=== PATIENT | female | born 1960 | race American Indian/Alaskan Native ===

== ENCOUNTER 2018-02-03 14:22 | Outpatient (CLI) | payer BC ==
[2018-02-03 14:44] LABS: Basophils % (Auto) 0.9 % (0.0-1.8); Eosinophils # (Auto) 0.2 K/mm3 (0.0-0.4); Eosinophils % (Auto) 4.1 % (0.0-4.3); Hematocrit 35.4 % (30.3-42.9); Hemoglobin 12.7 gm/dl (10.1-14.3); Lymphocytes # (Auto) 2.6 K/mm3 (1.2-5.4); Lymphocytes % (Auto) 49.4 % (13.4-35.0); Mean Corpuscular HGB Conc 36 % (30-34); Mean Corpuscular Hemoglobin 36 pg (28-32); Mean Corpuscular Volume 101 fl (79-97); Monocytes # (Auto) 0.5 K/mm3 (0.0-0.8); Monocytes % (Auto) 9.4 % (0.0-7.3); Platelet Count 307 K/mm3 (140-440); Red Blood Count 3.52 M/mm3 (3.65-5.03); Red Cell Distribution Width 13.6 % (13.2-15.2)
[2018-02-03 15:08] LABS: Erythrocyte Sedimentation Rate 38 mm/Hr (0-20)
== END 2018-02-03 14:23 | disposition home or self-care (01) ==
LOC: LAB 14:22
PROVIDERS: ATTEND Orthopaedic Surgery
DX: Z47.1 Aftercare following joint replacement surgery (principal); Z96.652 Presence of left artificial knee joint
CPT/HCPCS: 36415; 85025; 85652; 86140

== ENCOUNTER 2018-02-21 14:39 | Outpatient (CLI) | payer BC ==
--- NOTE | 2018-02-21 16:27 | Cat Scan Report ---
FINAL REPORT PROCEDURE: CT LOWER EXTREMITY LT WO CON TECHNIQUE: Computerized axial tomography of the LEFT knee was performed without contrast. HISTORY: REPLACEMENT OF TOTAL KNEE JOINT COMPARISON: No prior studies are available for comparison. FINDINGS: Total knee prosthesis is in place. There is metallic artifact degrading image quality. The femoral component appears tightly applied to bone. On the sagittal reconstructions there appears to be a lucency between the cement and shaft of the tibial component. I cannot exclude loosening. The device itself is intact. No fractures are identified. Small effusion appears to be present. Surrounding musculature is unremarkable. IMPRESSION: Total knee prosthesis in place. The prosthetic components are intact. Femoral component appears tightly applied to bone Possible loosening of the tibial component as described. Contrast injection under fluoroscopy may be helpful for further evaluation. Small joint effusion does appear to be present. No fractures are identified.
== END 2018-02-21 14:40 | disposition home or self-care (01) ==
LOC: CT 14:39
PROVIDERS: ATTEND Orthopaedic Surgery
DX: Z47.1 Aftercare following joint replacement surgery (principal); M25.462 Effusion, left knee; Z96.652 Presence of left artificial knee joint

== ENCOUNTER 2018-08-02 07:06 | Outpatient (CLI) | payer BC ==
--- NOTE | 2018-08-02 09:05 | Magnetic Resonance Report ---
MRI LUMBAR SPINE WITHOUT CONTRAST INDICATION: Low back pain. COMPARISON: None similar. FINDINGS: Noncontrast axial and sagittal T1 and T2-weighted MRI of the lumbar spine demonstrates normal vertebral body stature and alignment. Slight nonspecific marrow heterogeneity. Mild degenerative changes at L3-L4 with slight loss of disc height and signal. Grossly normal remainder imaged disc heights. Normal conus medullaris, terminating behind L1. Normal paraspinal soft tissues. Approximately 2 cm left interpolar renal cyst. On the obtained axial images: T12-L1, L1-L2 and L2-L3 are within normal limits. AP thecal sac caliber at L2-L3 is 1.2 cm, axial image 31, series 6. L3-L4 demonstrates mild degenerative spurring with slight adjacent Modic changes anteriorly. Mild to moderate bilateral facet arthropathy. Ligamentum flavum hypertrophy. Slight diffuse disc bulge. AP thecal sac caliber approximately 1 cm. L4-L5 demonstrates approximately 1.1 x 0.7 cm left paracentral focal disc protrusion with left anterolateral thecal sac effacement, axial series 6, images 16-20. Left neural foraminal narrowing/undercutting also noted with proximity to the exiting L4 nerve root, though without definite compression. Moderate left and mild right facet arthropathy also noted. Mild bilateral ligamentum flavum hypertrophy. L5-S1 also demonstrates bilateral facet arthropathy, left more than right. No spinal stenosis or exiting nerve root compression. Mild bilateral SI joint degenerative changes may be present. CONCLUSION: 1. Approximately 1.1 x 0.7 cm left paracentral disc protrusion at L4-L5 with left anterolateral thecal sac effacement/indentation, as detailed above. Please also correlate clinically with neurologic territory involvement. 2. Various other incidental findings, as above. Thank you for the opportunity to participate in this patient's care.
== END 2018-08-02 07:07 | disposition home or self-care (01) ==
LOC: MRI 07:06
PROVIDERS: ATTEND Orthopaedic Surgery
DX: M47.26 Other spondylosis with radiculopathy, lumbar region (principal); M12.88 Other specific arthropathies, not elsewhere classified, other specified site
CPT/HCPCS: 72148